=== PATIENT | female | born 1935 | race Hispanic/Latino ===

== ENCOUNTER 2021-11-14 21:25 | Inpatient (IN) | payer OTHER, MEDICARE ==
[~2021-11-14] VITALS: Ht 160 cm; Wt 82.6 kg
[~2021-11-14 21:25] MED LIST: FLUO20TA29 PO; LOSA50TA64 PO; METF-444 PO; PRAV20TA4 PO
[2021-11-14 21:59] LABS: BASOPHILS % (AUTO) 0.4 % (0.0-5.0); EOSINOPHILS % (AUTO) 0.1 % (0.0-8.0); LYMPHOCYTES % (AUTO) 20.2 % (21.0-51.0); MEAN CORPUSCULAR HEMOGLOBIN 29.6 pg (27.0-33.0); MEAN CORPUSCULAR HGB CONC 33.6 g/dL (32.0-36.0); MEAN CORPUSCULAR VOLUME 88.1 fL (79-99); MONOCYTES % (AUTO) 15.6 % (3.0-13.0); NEUTROPHILS % (AUTO) 63.2 % (40.0-77.0); PLATELET COUNT (AUTO) 349 K/uL (130-400); RED BLOOD CELL COUNT(AUTO) 4.77 MIL/uL (4.00-5.50); RED CELL DISTRIBUTION WIDTH 13.3 % (11.0-15.5); WHITE BLOOD COUNT (AUTO) 8.3 K/uL (4.8-10.8)
[2021-11-14] MEDS ORDERED: ONDANSETRON 4MG INJ IVP ONE (22:00)
[2021-11-14] MEDS ORDERED: LACTATED RINGERS 1000ML 1,000 ML IV ONE (22:00)
[2021-11-14 22:12] LABS: INR 1.02 (0.85-1.15); PROTHROMBIN TIME 11.1 SEC (9.6-11.6)
[2021-11-14 22:13] LABS: PARTIAL THROMBOPLASTIN TIME 24.3 SEC (26.3-35.5)
[2021-11-14 22:16] LABS: CREATININE 3.9 mg/dL (0.5-1.5); POTASSIUM 4.7 mmol/L (3.5-5.1)
[2021-11-14 22:23] LABS: B-TYPE NATRIURETIC PEPTIDE 37 pg/mL (0-100)
[2021-11-14 22:27] LABS: ALBUMIN 3.5 g/dL (3.5-5.0); BILIRUBIN,TOTAL 0.5 mg/dL (0.2-1.0); MAGNESIUM 1.9 mg/dL (1.80-2.40); TOTAL PROTEIN, SERUM 7.8 g/dL (6.0-8.3)
[2021-11-14 23:03] LABS: BILIRUBIN,URINE Negative (NEGATIVE); COLOR,URINE Dark Yellow (YELLOW); GLUCOSE, URINE (UA) Negative (NEGATIVE); KETONES,URINE Trace mg/dL (NEGATIVE); LEUKOCYTE ESTERASE ,URINE Moderate (NEGATIVE); NITRATE,URINE Negative (NEGATIVE); OCCULT BLOOD,URINE Negative (NEGATIVE); PROTEIN,URINE POS 1+ mg/dL (NEGATIVE)
[2021-11-14 23:05] LABS: APPEARANCE,URINE SLIGHTLY CLOUDY (CLEAR)
[2021-11-14 23:13] LABS: BACTERIA,URINE Many /HPF (None Seen); RBC,URINE None Seen /HPF (0-1)
[2021-11-15 01:17] LABS: CHLORIDE,URINE RANDOM 36 mmol/L (110-250); POTASSIUM,URINE RANDOM 69 mmol/L (25-125); SODIUM,URINE RANDOM 15 mmol/l (40-220)
[2021-11-15] MEDS ORDERED: ACETAMINOPHEN WITH CODEINE 1 TAB TAB PO PRN ×2 (01:30)
[2021-11-15] MEDS ORDERED: ACETAMINOPHEN 325 MG TAB PO PRN (01:30)
[2021-11-15] MEDS ORDERED: GLUCAGON 1MG KIT 1 MG ML IM PRN (01:30)
[2021-11-15] MEDS ORDERED: LACTULOSE 20 GM/30 ML UDCUP PO PRN (01:30)
[2021-11-15] MEDS ORDERED: GUAIFENESIN-DM 200/20 MG 10 ML PO PRN (01:30)
[2021-11-15] MEDS ORDERED: NITROGLYCERIN 0.4 MG SL TAB SL PRN (01:30)
[2021-11-15] MEDS ORDERED: DIPHENHYDRAMINE HCL 25 MG CAPSULE PO PRN (01:30)
[2021-11-15] MEDS ORDERED: MAG/ALUM/SIMETH 30 ML UDCUP PO PRN (01:30)
[2021-11-15] MEDS ORDERED: DEXTROSE 50%-WATER 50 ML DISP.SYRIN IV PRN (01:30)
[2021-11-15] MEDS: CEFTRIAXONE 1G VIAL IV SCH (01:44)
[2021-11-15] MEDS: 0.9%NACL 1000ML 1,000 ML IV SCH ×2 (01:44→13:33)
[2021-11-15 01:49] LABS: HEMOGLOBIN A1C 6.8 % (4.0-6.0)
[2021-11-15 05:15] VITALS: BP 107/58
[2021-11-15] MEDS ORDERED: FAMO40TA7 PO (05:42)
[2021-11-15] MEDS ORDERED: DONE-51 PO (05:42)
[2021-11-15] MEDS ORDERED: ATOR20TA65 PO (05:42)
[2021-11-15] MEDS ORDERED: OMEP40CA21 PO (05:42)
[2021-11-15] MEDS: INSULIN HUMULIN R 100 UNIT/ML 3ML SQ SCH ×4 (05:48→20:35)
[2021-11-15 07:30] VITALS: BP 98/60
[2021-11-15 10:50] VITALS: BP 115/68
[2021-11-15] MEDS: FAMOTIDINE 20MG VIAL IV SCH (10:55)
[2021-11-15] MEDS: HEPARIN 5,000 UNIT VIAL SQ SCH ×2 (10:56→20:35)
[2021-11-15 11:10] LABS: CREATININE 2.5 mg/dL (0.5-1.5); POTASSIUM 4.4 mmol/L (3.5-5.1)
[2021-11-15 11:13] LABS: HEMATOCRIT 37.2 % (36-48); MEAN CORPUSCULAR HEMOGLOBIN 30.1 pg (27.0-33.0); MEAN CORPUSCULAR HGB CONC 33.9 g/dL (32.0-36.0); RED BLOOD CELL COUNT(AUTO) 4.18 MIL/uL (4.00-5.50); RED CELL DISTRIBUTION WIDTH 13.5 % (11.0-15.5)
[2021-11-15 16:00] VITALS: BP 118/64
[2021-11-15 19:35] VITALS: BP 115/68
[2021-11-16] VITALS (7 sets, daily range): BP systolic 111–131; BP diastolic 54–74
[2021-11-16] MEDS: CEFTRIAXONE 1G VIAL IV SCH (01:18)
[2021-11-16] MEDS: INSULIN HUMULIN R 100 UNIT/ML 3ML SQ SCH ×4 (06:12→20:26)
[2021-11-16 06:20] LABS: HEMATOCRIT 38.3 % (36-48); MEAN CORPUSCULAR HEMOGLOBIN 29.3 pg (27.0-33.0); MEAN CORPUSCULAR HGB CONC 32.6 g/dL (32.0-36.0); MEAN CORPUSCULAR VOLUME 89.7 fL (79-99); PLATELET COUNT (AUTO) 289 K/uL (130-400); RED BLOOD CELL COUNT(AUTO) 4.27 MIL/uL (4.00-5.50); RED CELL DISTRIBUTION WIDTH 13.6 % (11.0-15.5); WHITE BLOOD COUNT (AUTO) 6.8 K/uL (4.8-10.8)
[2021-11-16 06:42] LABS: CREATININE 1.6 mg/dL (0.5-1.5); PHOSPHORUS 2.5 mg/dL (2.5-4.9); POTASSIUM 3.9 mmol/L (3.5-5.1); THYROID STIMULATING HORMONE 0.66 uIU/mL (0.36-3.74); URIC ACID 10.2 mg/dL (2.6-7.2)
[2021-11-16] MEDS: 0.9%NACL 1000ML 1,000 ML IV SCH ×2 (06:46→20:25)
[2021-11-16 07:46] LABS: LYMPHOCYTES % (MANUAL) 18 % (22-44); MONOCYTES % (MANUAL) 7 % (2-9); SEGMENTED NEUTROPHILS % 75 % (40-70)
[2021-11-16 07:47] LABS: MAN.DIFF COMMENT-IMPRESSION MANUAL DIFFERENTIAL; PLATELET MORPHOLOGY COMMENT ADEQUATE
[2021-11-16] MEDS: ONDANSETRON 4MG INJ IV PRN ×2 (07:59→17:01)
[2021-11-16] MEDS: Vitamin B Complex/Vit C/Folic Acid PO SCH (07:59)
[2021-11-16] MEDS: FAMOTIDINE 20MG VIAL IV SCH (07:59)
[2021-11-16] MEDS: THIAMINE HCL 100 MG/ML 2ML VIAL IVP SCH (07:59)
[2021-11-16] MEDS: HEPARIN 5,000 UNIT VIAL SQ SCH ×2 (08:00→20:28)
[2021-11-16 09:57] LABS: APPEARANCE,URINE CLEAR (CLEAR); BILIRUBIN,URINE NEGATIVE (NEGATIVE); COLOR,URINE YELLOW (YELLOW); GLUCOSE, URINE (UA) NEGATIVE (NEGATIVE); KETONES,URINE 15 mg/dL (NEGATIVE); LEUKOCYTE ESTERASE ,URINE NEGATIVE (NEGATIVE); NITRATE,URINE NEGATIVE (NEGATIVE); OCCULT BLOOD,URINE TRACE-INTACT (NEGATIVE); PROTEIN,URINE TRACE mg/dL (NEGATIVE); UROBILINOGEN,URINE 0.2 mg/dL (0.2-1.0)
[2021-11-16 10:22] LABS: RBC,URINE 0-1 /HPF (0-1)
[2021-11-16 10:23] LABS: BACTERIA,URINE Few /HPF (None Seen); SQUAMOUS EPITHELIAL CELL,UR 0-2 /HPF (0-2); WBC,URINE 0-1 /HPF (0-1)
[2021-11-16] MEDS ORDERED: ONDANSETRON 4MG INJ IVP ONE (21:30)
[2021-11-17] MEDS: CEFTRIAXONE 1G VIAL IV SCH (01:14)
[2021-11-17] MEDS: 0.9%NACL 1000ML 1,000 ML IV SCH ×2 (01:42→13:45)
[2021-11-17 04:39] VITALS: BP 137/73
[2021-11-17 04:45] LABS: HEMATOCRIT 38.8 % (36-48); MEAN CORPUSCULAR VOLUME 90.7 fL (79-99); PLATELET COUNT (AUTO) 317 K/uL (130-400); RED BLOOD CELL COUNT(AUTO) 4.28 MIL/uL (4.00-5.50); RED CELL DISTRIBUTION WIDTH 13.6 % (11.0-15.5)
[2021-11-17 05:07] LABS: CREATININE 1.3 mg/dL (0.5-1.5); POTASSIUM 3.9 mmol/L (3.5-5.1)
[2021-11-17] MEDS: INSULIN HUMULIN R 100 UNIT/ML 3ML SQ SCH ×3 (05:52→23:40)
[2021-11-17 06:19] LABS: LYMPHOCYTES % (MANUAL) 24 % (22-44); MAN.DIFF COMMENT-IMPRESSION MANUAL DIFFERENTIAL; MONOCYTES % (MANUAL) 5 % (2-9); REACTIVE LYMPHOCYTES 1 % (0-0); SEGMENTED NEUTROPHILS % 70 % (40-70)
[2021-11-17 06:20] LABS: PLATELET MORPHOLOGY COMMENT ADEQUATE
[2021-11-17 08:00] VITALS: BP 140/80
[2021-11-17] MEDS: PANTOPRAZOLE 40 MG/VIAL IVP SCH (08:45)
[2021-11-17] MEDS: HEPARIN 5,000 UNIT VIAL SQ SCH ×2 (08:46→20:36)
[2021-11-17] MEDS: MORPHINE 2 MG SYG IVP PRN ×2 (08:47→20:37)
[2021-11-17] MEDS: THIAMINE HCL 100 MG/ML 2ML VIAL IVP SCH (08:55)
[2021-11-17] MEDS: Vitamin B Complex/Vit C/Folic Acid PO SCH (08:56)
[2021-11-17 12:00] VITALS: BP 135/74
[2021-11-17 16:00] VITALS: BP 131/65
[2021-11-17 19:37] VITALS: BP 119/67
[2021-11-18] VITALS (7 sets, daily range): BP systolic 117–148; BP diastolic 57–75
[2021-11-18] MEDS: CEFTRIAXONE 1G VIAL IV SCH (02:21)
[2021-11-18] MEDS: 0.9%NACL 1000ML 1,000 ML IV SCH (02:22)
[2021-11-18] MEDS ORDERED: MORPHINE 2 MG SYG IVP ONE (03:30)
[2021-11-18 04:57] LABS: HEMATOCRIT 36.1 % (36-48); MEAN CORPUSCULAR HEMOGLOBIN 29.9 pg (27.0-33.0); MEAN CORPUSCULAR HGB CONC 32.1 g/dL (32.0-36.0); RED BLOOD CELL COUNT(AUTO) 3.88 MIL/uL (4.00-5.50); RED CELL DISTRIBUTION WIDTH 13.8 % (11.0-15.5)
[2021-11-18 05:17] LABS: CREATININE 1.1 mg/dL (0.5-1.5); POTASSIUM 3.7 mmol/L (3.5-5.1)
[2021-11-18] MEDS: INSULIN HUMULIN R 100 UNIT/ML 3ML SQ SCH ×3 (06:00→18:00)
[2021-11-18] MEDS: MORPHINE 2 MG SYG IVP PRN ×3 (06:42→22:15)
[2021-11-18] MEDS: Vitamin B Complex/Vit C/Folic Acid PO SCH (09:00)
[2021-11-18] MEDS: THIAMINE HCL 100 MG/ML 2ML VIAL IVP SCH (09:17)
[2021-11-18] MEDS: PANTOPRAZOLE 40 MG/VIAL IVP SCH ×2 (09:17→22:12)
[2021-11-18] MEDS: HEPARIN 5,000 UNIT VIAL SQ SCH ×2 (09:26→22:12)
[2021-11-18] MEDS: 1/2NS+20MEQ KCL/1000ML 1,000 ML IV SCH ×2 (15:29→23:00)
[2021-11-19] MEDS: CEFTRIAXONE 1G VIAL IV SCH (01:40)
[2021-11-19 03:52] VITALS: BP 131/86
[2021-11-19 05:13] LABS: BASOPHILS % (AUTO) 0.3 % (0.0-5.0); EOSINOPHILS % (AUTO) 0.2 % (0.0-8.0); LYMPHOCYTES % (AUTO) 16.5 % (21.0-51.0); MEAN CORPUSCULAR HEMOGLOBIN 28.9 pg (27.0-33.0); MEAN CORPUSCULAR HGB CONC 31.4 g/dL (32.0-36.0); MEAN CORPUSCULAR VOLUME 92.3 fL (79-99); NEUTROPHILS % (AUTO) 58.8 % (40.0-77.0); PLATELET COUNT (AUTO) 236 K/uL (130-400); RED BLOOD CELL COUNT(AUTO) 4.01 MIL/uL (4.00-5.50); RED CELL DISTRIBUTION WIDTH 13.8 % (11.0-15.5); WHITE BLOOD COUNT (AUTO) 9.6 K/uL (4.8-10.8)
[2021-11-19 05:33] LABS: ALBUMIN 2.5 g/dL (3.5-5.0); BILIRUBIN,TOTAL 0.3 mg/dL (0.2-1.0); CREATININE 1.1 mg/dL (0.5-1.5); MAGNESIUM 1.7 mg/dL (1.80-2.40); PHOSPHORUS 2.9 mg/dL (2.5-4.9); POTASSIUM 3.9 mmol/L (3.5-5.1); TOTAL PROTEIN, SERUM 5.6 g/dL (6.0-8.3)
[2021-11-19] MEDS: INSULIN HUMULIN R 100 UNIT/ML 3ML SQ SCH ×4 (06:00→18:00)
[2021-11-19 08:08] VITALS: BP 129/70
[2021-11-19] MEDS: THIAMINE HCL 100 MG/ML 2ML VIAL IVP SCH (08:14)
[2021-11-19] MEDS: PANTOPRAZOLE 40 MG/VIAL IVP SCH ×2 (08:14→21:22)
[2021-11-19] MEDS: MORPHINE 2 MG SYG IVP PRN (08:15)
[2021-11-19] MEDS: HEPARIN 5,000 UNIT VIAL SQ SCH ×2 (08:16→21:24)
[2021-11-19] MEDS: Vitamin B Complex/Vit C/Folic Acid PO SCH (09:00)
[2021-11-19 12:14] VITALS: BP 136/76
[2021-11-19] MEDS: 1/2NS+20MEQ KCL/1000ML 1,000 ML IV SCH ×2 (13:24→19:00)
[2021-11-19 16:17] VITALS: BP 125/73
[2021-11-19] MEDS: MAGNESIUM 2GM PREMIX 50ML 50 ML IV SCH (18:28)
[2021-11-19] MEDS: HYDROMORPHONE 1 MG INJ IVP PRN (18:30)
[2021-11-19 19:25] VITALS: BP 136/70
[2021-11-19] MEDS: KETOROLAC 15MG/ML VIAL (15MG/ML) IV SCH (21:23)
[2021-11-20 00:04] VITALS: BP 125/81
[2021-11-20] MEDS: CEFTRIAXONE 1G VIAL IV SCH ×2 (00:59→01:47)
[2021-11-20] MEDS: HYDROMORPHONE 1 MG INJ IVP PRN ×5 (01:44→19:11)
[2021-11-20 03:08] VITALS: BP 135/80
[2021-11-20] MEDS: 1/2NS+20MEQ KCL/1000ML 1,000 ML IV SCH ×2 (04:05→19:11)
[2021-11-20 04:52] LABS: BASOPHILS % (AUTO) 0.4 % (0.0-5.0); EOSINOPHILS % (AUTO) 0.4 % (0.0-8.0); HEMATOCRIT 36.3 % (36-48); LYMPHOCYTES % (AUTO) 19.7 % (21.0-51.0); MEAN CORPUSCULAR HEMOGLOBIN 29.4 pg (27.0-33.0); MEAN CORPUSCULAR VOLUME 92.1 fL (79-99); MONOCYTES % (AUTO) 11.7 % (3.0-13.0); NEUTROPHILS % (AUTO) 59.1 % (40.0-77.0); PLATELET COUNT (AUTO) 220 K/uL (130-400); RED BLOOD CELL COUNT(AUTO) 3.94 MIL/uL (4.00-5.50); RED CELL DISTRIBUTION WIDTH 13.7 % (11.0-15.5); WHITE BLOOD COUNT (AUTO) 9.5 K/uL (4.8-10.8)
[2021-11-20] MEDS: KETOROLAC 15MG/ML VIAL (15MG/ML) IV SCH ×3 (05:09→22:00)
[2021-11-20 05:16] LABS: CREATININE 1.1 mg/dL (0.5-1.5); MAGNESIUM 2.1 mg/dL (1.80-2.40); PHOSPHORUS 3.6 mg/dL (2.5-4.9); POTASSIUM 4.2 mmol/L (3.5-5.1)
[2021-11-20] MEDS: INSULIN HUMULIN R 100 UNIT/ML 3ML SQ SCH ×4 (06:00→18:00)
[2021-11-20 08:00] VITALS: BP 132/78
[2021-11-20] MEDS: Vitamin B Complex/Vit C/Folic Acid PO SCH (09:00)
[2021-11-20] MEDS: THIAMINE HCL 100 MG/ML 2ML VIAL IVP SCH (09:57)
[2021-11-20] MEDS: PANTOPRAZOLE 40 MG/VIAL IVP SCH ×2 (09:57→21:27)
[2021-11-20] MEDS: HEPARIN 5,000 UNIT VIAL SQ SCH ×2 (10:01→21:29)
[2021-11-20 11:23] VITALS: BP 143/74
[2021-11-20 16:00] VITALS: BP 127/70
[2021-11-20 20:33] VITALS: BP 131/68
[2021-11-21] VITALS (7 sets, daily range): BP systolic 111–136; BP diastolic 68–73
[2021-11-21] MEDS: HYDROMORPHONE 1 MG INJ IVP PRN ×2 (03:23→16:28)
[2021-11-21 05:24] LABS: ALBUMIN 2.3 g/dL (3.5-5.0); BILIRUBIN,TOTAL 0.3 mg/dL (0.2-1.0); MAGNESIUM 1.7 mg/dL (1.80-2.40); PHOSPHORUS 3.1 mg/dL (2.5-4.9); POTASSIUM 4.1 mmol/L (3.5-5.1); TOTAL PROTEIN, SERUM 5.4 g/dL (6.0-8.3)
[2021-11-21 05:28] LABS: BASOPHILS % (AUTO) 0.2 % (0.0-5.0); EOSINOPHILS % (AUTO) 0.7 % (0.0-8.0); HEMATOCRIT 35.5 % (36-48); LYMPHOCYTES % (AUTO) 18.1 % (21.0-51.0); MEAN CORPUSCULAR HEMOGLOBIN 29.4 pg (27.0-33.0); MEAN CORPUSCULAR HGB CONC 31.5 g/dL (32.0-36.0); MEAN CORPUSCULAR VOLUME 93.2 fL (79-99); MONOCYTES % (AUTO) 8.2 % (3.0-13.0); NEUTROPHILS % (AUTO) 69.8 % (40.0-77.0); PLATELET COUNT (AUTO) 201 K/uL (130-400); RED BLOOD CELL COUNT(AUTO) 3.81 MIL/uL (4.00-5.50); RED CELL DISTRIBUTION WIDTH 13.8 % (11.0-15.5); WHITE BLOOD COUNT (AUTO) 8.6 K/uL (4.8-10.8)
[2021-11-21] MEDS: KETOROLAC 15MG/ML VIAL (15MG/ML) IV SCH ×2 (06:00→21:11)
[2021-11-21] MEDS: INSULIN HUMULIN R 100 UNIT/ML 3ML SQ SCH ×4 (06:00→18:00)
[2021-11-21] MEDS: Vitamin B Complex/Vit C/Folic Acid PO SCH (09:00)
[2021-11-21] MEDS: 1/2NS+20MEQ KCL/1000ML 1,000 ML IV SCH ×3 (09:48→19:58)
[2021-11-21] MEDS: THIAMINE HCL 100 MG/ML 2ML VIAL IVP SCH (09:52)
[2021-11-21] MEDS: PANTOPRAZOLE 40 MG/VIAL IVP SCH ×2 (09:52→19:58)
[2021-11-21] MEDS: HEPARIN 5,000 UNIT VIAL SQ SCH ×2 (10:05→20:05)
[2021-11-22] MEDS: CEFTRIAXONE 1G VIAL IV SCH (01:12)
[2021-11-22 04:25] VITALS: BP 113/58
[2021-11-22 05:31] LABS: HEMATOCRIT 34.1 % (36-48); MEAN CORPUSCULAR HEMOGLOBIN 29.8 pg (27.0-33.0); MEAN CORPUSCULAR HGB CONC 31.7 g/dL (32.0-36.0); MEAN CORPUSCULAR VOLUME 93.9 fL (79-99); PLATELET COUNT (AUTO) 114 K/uL (130-400); RED BLOOD CELL COUNT(AUTO) 3.63 MIL/uL (4.00-5.50); RED CELL DISTRIBUTION WIDTH 13.7 % (11.0-15.5); WHITE BLOOD COUNT (AUTO) 9.3 K/uL (4.8-10.8)
[2021-11-22 05:42] LABS: CREATININE 0.8 mg/dL (0.5-1.5); PHOSPHORUS 2.8 mg/dL (2.5-4.9); POTASSIUM 3.9 mmol/L (3.5-5.1)
[2021-11-22 05:54] LABS: BAND NEUTROPHILS % (MANUAL) 1 % (0-2); LYMPHOCYTES % (MANUAL) 13 % (22-44); MAN.DIFF COMMENT-IMPRESSION MANUAL DIFFERENTIAL; MONOCYTES % (MANUAL) 5 % (2-9); PLATELET MORPHOLOGY COMMENT ADEQUATE; SEGMENTED NEUTROPHILS % 81 % (40-70)
[2021-11-22] MEDS: KETOROLAC 15MG/ML VIAL (15MG/ML) IV SCH ×2 (06:00→20:59)
[2021-11-22] MEDS: INSULIN HUMULIN R 100 UNIT/ML 3ML SQ SCH ×5 (06:00→23:09)
[2021-11-22 08:00] VITALS: BP 139/82
[2021-11-22] MEDS: PANTOPRAZOLE 40 MG/VIAL IVP SCH ×2 (09:09→21:01)
[2021-11-22] MEDS: Vitamin B Complex/Vit C/Folic Acid PO SCH (09:09)
[2021-11-22] MEDS: THIAMINE HCL 100 MG/ML 2ML VIAL IVP SCH (09:10)
[2021-11-22] MEDS: HEPARIN 5,000 UNIT VIAL SQ SCH ×2 (09:12→21:02)
[2021-11-22 11:59] VITALS: BP 134/69
[2021-11-22] MEDS: 1/2NS+20MEQ KCL/1000ML 1,000 ML IV SCH ×2 (13:40→17:00)
[2021-11-22 16:00] VITALS: BP 132/68
[2021-11-22 20:27] VITALS: BP 116/64
[2021-11-22 23:33] VITALS: BP 113/70
[2021-11-23] MEDS: CEFTRIAXONE 1G VIAL IV SCH (01:24)
[2021-11-23] MEDS: 1/2NS+20MEQ KCL/1000ML 1,000 ML IV SCH ×3 (01:25→23:00)
[2021-11-23 04:00] VITALS: BP 139/77
[2021-11-23 05:11] LABS: BASOPHILS % (AUTO) 0.1 % (0.0-5.0); HEMATOCRIT 34.6 % (36-48); LYMPHOCYTES % (AUTO) 10.7 % (21.0-51.0); MEAN CORPUSCULAR HEMOGLOBIN 29.5 pg (27.0-33.0); MEAN CORPUSCULAR HGB CONC 32.1 g/dL (32.0-36.0); MONOCYTES % (AUTO) 5.2 % (3.0-13.0); NEUTROPHILS % (AUTO) 82.1 % (40.0-77.0); PLATELET COUNT (AUTO) 165 K/uL (130-400); RED BLOOD CELL COUNT(AUTO) 3.76 MIL/uL (4.00-5.50); RED CELL DISTRIBUTION WIDTH 13.4 % (11.0-15.5); WHITE BLOOD COUNT (AUTO) 11.5 K/uL (4.8-10.8)
[2021-11-23 05:31] LABS: ALBUMIN 2.1 g/dL (3.5-5.0); BILIRUBIN,TOTAL 0.3 mg/dL (0.2-1.0); CREATININE 0.8 mg/dL (0.5-1.5); MAGNESIUM 1.3 mg/dL (1.80-2.40); POTASSIUM 3.8 mmol/L (3.5-5.1); TOTAL PROTEIN, SERUM 5.3 g/dL (6.0-8.3)
[2021-11-23] MEDS: INSULIN HUMULIN R 100 UNIT/ML 3ML SQ SCH ×2 (06:00→12:00)
[2021-11-23] MEDS: KETOROLAC 15MG/ML VIAL (15MG/ML) IV SCH ×2 (06:00→22:00)
[2021-11-23 07:30] VITALS: BP 112/57
[2021-11-23] MEDS: Vitamin B Complex/Vit C/Folic Acid PO SCH (09:00)
[2021-11-23] MEDS: THIAMINE HCL 100 MG/ML 2ML VIAL IVP SCH (10:32)
[2021-11-23] MEDS: PANTOPRAZOLE 40 MG/VIAL IVP SCH ×2 (10:32→21:40)
[2021-11-23] MEDS: HEPARIN 5,000 UNIT VIAL SQ SCH ×2 (10:44→21:39)
[2021-11-23 11:30] VITALS: BP 111/60
[2021-11-23 15:25] VITALS: BP 112/68
[2021-11-23 20:43] VITALS: BP 98/51
[2021-11-23] MEDS: MAGNESIUM 2GM PREMIX 50ML 50 ML IV SCH (21:41)
[2021-11-24 00:25] VITALS: BP 134/69
[2021-11-24] MEDS: CEFTRIAXONE 1G VIAL IV SCH (01:30)
[2021-11-24 03:52] VITALS: BP 122/76
[2021-11-24 05:14] LABS: BASOPHILS % (AUTO) 0.1 % (0.0-5.0); EOSINOPHILS % (AUTO) 1.3 % (0.0-8.0); HEMATOCRIT 32.7 % (36-48); LYMPHOCYTES % (AUTO) 11.3 % (21.0-51.0); MEAN CORPUSCULAR HEMOGLOBIN 29.4 pg (27.0-33.0); MEAN CORPUSCULAR HGB CONC 31.8 g/dL (32.0-36.0); MEAN CORPUSCULAR VOLUME 92.4 fL (79-99); MONOCYTES % (AUTO) 5.4 % (3.0-13.0); NEUTROPHILS % (AUTO) 81.3 % (40.0-77.0); PLATELET COUNT (AUTO) 160 K/uL (130-400); RED BLOOD CELL COUNT(AUTO) 3.54 MIL/uL (4.00-5.50); RED CELL DISTRIBUTION WIDTH 13.3 % (11.0-15.5); WHITE BLOOD COUNT (AUTO) 10.3 K/uL (4.8-10.8)
[2021-11-24] MEDS: 1/2NS+20MEQ KCL/1000ML 1,000 ML IV SCH (05:24)
[2021-11-24 05:30] LABS: BILIRUBIN,TOTAL 0.2 mg/dL (0.2-1.0); CREATININE 0.8 mg/dL (0.5-1.5); MAGNESIUM 1.6 mg/dL (1.80-2.40); PHOSPHORUS 2.6 mg/dL (2.5-4.9); POTASSIUM 3.4 mmol/L (3.5-5.1)
[2021-11-24] MEDS: KETOROLAC 15MG/ML VIAL (15MG/ML) IV SCH ×2 (06:00→14:00)
[2021-11-24] MEDS: INSULIN HUMULIN R 100 UNIT/ML 3ML SQ SCH ×4 (06:00→18:00)
[2021-11-24 07:30] VITALS: BP 125/62
[2021-11-24] MEDS ORDERED: KCL 20 MEQ ERTAB PO SCH (07:30)
[2021-11-24] MEDS: PANTOPRAZOLE 40 MG/VIAL IVP SCH (11:16)
[2021-11-24] MEDS: THIAMINE HCL 100 MG/ML 2ML VIAL IVP SCH (11:16)
[2021-11-24] MEDS: Vitamin B Complex/Vit C/Folic Acid PO SCH (11:16)
[2021-11-24] MEDS: HEPARIN 5,000 UNIT VIAL SQ SCH (11:18)
[2021-11-24 11:30] VITALS: BP 105/56
[2021-11-24 15:20] VITALS: BP 103/57
[2021-11-24 19:58] VITALS: BP 97/66
== END 2021-11-24 21:01 | disposition home or self-care (01) | DRG 388 ==
LOC: EDH 21:25 → EDHIP 11-15 01:03 → 3BH 11-15 04:54
PROVIDERS: ADMIT Hospitalist; ATTEND Hospitalist
PROC: 0D9670Z Drainage of Stomach with Drainage Device, Via Natural or Artificial Opening (ICD-10-PCS; principal; 2021-11-17)
DX: K56.609 Unspecified intestinal obstruction, unspecified as to partial versus complete obstruction (principal); N17.0 Acute kidney failure with tubular necrosis; N39.0 Urinary tract infection, site not specified; E86.0 Dehydration; E11.9 Type 2 diabetes mellitus without complications; F03.90 Unspecified dementia, unspecified severity, without behavioral disturbance, psychotic disturbance, mood disturbance, and anxiety; I10 Essential (primary) hypertension; D64.9 Anemia, unspecified; E78.5 Hyperlipidemia, unspecified; B96.1 Klebsiella pneumoniae [K. pneumoniae] as the cause of diseases classified elsewhere; E78.00 Pure hypercholesterolemia, unspecified; M19.90 Unspecified osteoarthritis, unspecified site; Z91.018 Allergy to other foods; Z87.11 Personal history of peptic ulcer disease; Z90.710 Acquired absence of both cervix and uterus; Z90.49 Acquired absence of other specified parts of digestive tract; Z83.3 Family history of diabetes mellitus; Z82.49 Family history of ischemic heart disease and other diseases of the circulatory system
CPT/HCPCS: 36415; 71045; 74018; 74176; 76700; 76770; 80048; 80051; 80053; 81001; 82150; 82550; 82948; 83036; 83605; 83690; 83735; 83874; 83880; 84100; 84443; 84484; 84550; 85025; 85027; 85610; 85730; 87077; 87088; 87186; 93005; 97039; 99291; C9113; G0378; J0696; J1170; J1644; J1885; J2405; J3411; J3475; J3480; J3490; J7030; J7120